=== PATIENT | female | born 1995 | race Caucasian/White ===

== ENCOUNTER 2024-11-30 20:35 | Emergency (ER) | payer BC ==
[~2024-11-30] VITALS: Ht 172.7 cm; Wt 70.0 kg
[2024-11-30 20:37] VITALS: TEMP 36.8; O2SAT 99
[2024-12-01] MEDS: KETOROLAC 15MG/ML VIAL IM ONE (00:38)
[2024-12-01] MEDS: LIDOCAINE 5% PATCH TOP SCH (00:39)
[2024-12-01] MEDS ORDERED: NAPR-1176 MT (01:17)
[2024-12-01] MEDS ORDERED: LIDO700A15 TP (01:17)
[2024-12-01] MEDS ORDERED: CYCL5TAB3 MT (01:19)
[2024-12-01 01:29] VITALS: BP 130/88; PULSE 69; RESP 18; O2SAT 98
== END 2024-12-01 01:31 | disposition home or self-care (01) ==
LOC: ER 20:35
DX: M54.6 Pain in thoracic spine (principal); Z79.1 Long term (current) use of non-steroidal anti-inflammatories (NSAID); Z79.899 Other long term (current) drug therapy; Z88.2 Allergy status to sulfonamides; Z88.1 Allergy status to other antibiotic agents; V89.2XXA Person injured in unspecified motor-vehicle accident, traffic, initial encounter; Y93.89 Activity, other specified; Y92.89 Other specified places as the place of occurrence of the external cause; Y99.8 Other external cause status
CPT/HCPCS: 99285; 72125; 81025; 96372; J1885